=== PATIENT | female | born 1990 | race Caucasian/White ===

== ENCOUNTER 2016-10-03 07:06 | Inpatient (IN) | payer BC, OTHER ==
[2016-10-03] MEDS: Lactated Ringers 1,000 ML IV SCH ×2 (07:40→16:38)
[2016-10-03] MEDS ORDERED: Oxytocin/Normal Saline 10 UNIT/1,000 ML BAG IV SCH (08:00)
--- NOTE | 2016-10-03 08:20 | PCM.SN ---
- Free Text/Narrative Note: Subjective-This is a 26-year-old G4 para 3 who is 39+ weeks with an EDC of . Here for induction. Group B negative. She's been having contractions but nothing significant. Objective- heart tones 140s reactive. Cervix 2+/80/-2 Assessment-induction term multipara group B negative Plan-AROM clear Vaginal delivery
[2016-10-03] MEDS ORDERED: ePHEDrine 50 MG/ML SDV ONE (12:08)
[2016-10-03] MEDS ORDERED: Scopolamine 1.5 MG Transdermal Patch ONE (12:08)
[2016-10-03] MEDS ORDERED: Naloxone 0.4 MG/ML SDV ONE (12:09)
[2016-10-03] MEDS ORDERED: fentaNYL 100 MCG/2 ML SDV ITHECAL ONE ×2 (12:12→14:36)
[2016-10-03] MEDS ORDERED: Bupivacaine 0.75%/D5W 2 ML Amp ISPINAL ONE ×2 (12:12→14:36)
[2016-10-03] MEDS ORDERED: Morphine PF 10 MG/10 ML SDV ONE (12:12)
--- NOTE | 2016-10-03 12:37 | PCM.SN ---
- Free Text/Narrative Note: Cervix
[2016-10-03] MEDS ORDERED: Nalbuphine 10 MG/1 ML Vial IVPUSH PRN (12:39)
[2016-10-03] MEDS ORDERED: Famotidine/Normal Saline 20 MG in Premix Bag 1 BAG IV PRN (12:39)
[2016-10-03] MEDS ORDERED: Naloxone 0.4 MG/ML SDV IVPUSH PRN (12:39)
[2016-10-03] MEDS ORDERED: Naltrexone 50 MG Tab PO PRN (12:39)
[2016-10-03] MEDS ORDERED: Scopolamine 1.5 MG Transdermal Patch TOP ONE (12:39)
[2016-10-03] MEDS ORDERED: diphenhydrAMINE 50 MG/ML SDV IVPUSH PRN (12:39)
[2016-10-03] MEDS ORDERED: Promethazine 12.5 MG in Sodium Chloride 0.9% 50 ML IV PRN (12:39)
[2016-10-03] MEDS ORDERED: ePHEDrine 50 MG/ML SDV IVPUSH PRN (12:39)
[2016-10-03] MEDS ORDERED: Ondansetron 4 MG/2 ML SDV IVPUSH PRN (12:39)
[2016-10-03] MEDS ORDERED: Promethazine 6.25 MG in Sodium Chloride 0.9% 50 ML IV PRN (12:39)
[2016-10-03] MEDS ORDERED: diphenhydrAMINE 50 MG/ML SDV IV PRN (12:39)
[2016-10-03] MEDS ORDERED: Lactated Ringers 500 ML IV SCH ×2 (12:45)
[2016-10-03] MEDS ORDERED: fentaNYL 100 MCG/2 ML SDV ONE (14:35)
--- NOTE | 2016-10-03 15:46 | PCM.DEL ---
L & D Note - General Info Date of Service: 10/03/16 - Delivery Note Labor: augmented by oxytocin Delivery Outcome: Livebirth Delivery Method: Spontaneous Vaginal Delivery Infant Delivery Mode: Spontaneous Presentation: OA Nuchal Cord: None Prep: Other Anesthesia Type: Intrathecal Local Anesthetic Volume: 5cc Amniotic Fluid Description: Clear Episiotomy Type: Midline Suture type: vicryl Suture size: 4-0 Placenta: intact, spontaneous Cord: 3 vessels Resuscitation Needed: No : Bulb Syringe Delivery Comments (Free Text/Narrative):: First-degree laceration repaired in usual fashion. Blood loss less than 500 and complications none - Patient Data Vitals - most recent: Last Vital Signs Temp Pulse 97 10/03/16 13:04 Resp 17 10/03/16 13:04 BP 133/63 10/03/16 13:04 Pulse Ox 99 10/03/16 13:04 Weight - most recent: 250 lb I&O - last 24 hours: Intake & Output 10/03/16 10/03/16 10/03/16 06:59 14:59 22:59 Output Total 350 Balance -350 Med Orders - Current: Current Medications Diphenhydramine HCl (Benadryl) 25 mg IVPUSH ASDIRECTED PRN PRN Reason: EXTRAPYRAMIDAL SIDE EFFECTS Diphenhydramine HCl (Benadryl) 25 mg IV ASDIRECTED PRN PRN Reason: PRURITUS Ephedrine Sulfate (Ephedrine Sulfate) 0 mg IVPUSH ASDIRECTED PRN PRN Reason: Hypotension Lactated Ringer's (Ringers, Lactated) 1,000 mls @ 125 mls/hr IV ASDIRECTED EDDA Last Admin: 10/03/16 07:40 Dose: 125 mls/hr Oxytocin/Sodium Chloride (Pitocin In Ns 10 Units/1,000 Ml) 10 unit in 1,000 mls @ 12 mls/hr IV TITRATE EDDA; 2 MUNITS/MIN PRN Reason: Protocol Last Titration: 10/03/16 12:41 Dose: 6 munits/min, 36 mls/hr Famotidine 20 mg/ Premix 50 mls @ 100 mls/hr IV ONETIME PRN PRN Reason: PRURITIS Lactated Ringer's (Ringers, Lactated) 500 mls @ 999 mls/hr IV .SEECOMMENT EDDA Lactated Ringer's (Ringers, Lactated) 500 mls @ 999 mls/hr IV .BOLUS EDDA Promethazine HCl 6.25 mg/ (Sodium Chloride) 50.25 mls @ 200 mls/hr IV Q4H PRN PRN Reason: Nausea/Vomiting Promethazine HCl 12.5 mg/ (Sodium Chloride) 50.5 mls @ 200 mls/hr IV Q4H PRN PRN Reason: Nausea/Vomiting Nalbuphine HCl (Nubain) 10 mg IVPUSH Q1H PRN PRN Reason: PRURITUS Naltrexone HCl (Naltrexone) 25 mg PO ASDIRECTED PRN PRN Reason: REVERSAL Ondansetron HCl (Zofran) 4 mg IVPUSH Q4H PRN PRN Reason: Nausea/Vomiting Discontinued Medications Ephedrine Sulfate (Ephedrine Sulfate) Confirm Administered Dose 50 mg .ROUTE .STK-MED ONE Stop: 10/03/16 12:09 Fentanyl (Sublimaze) Confirm Administered Dose 100 mcg .ROUTE .STK-MED ONE Stop: 10/03/16 14:36 Naloxone HCl (Narcan) Confirm Administered Dose 0.4 mg .ROUTE .STK-MED ONE Stop: 10/03/16 12:10 Naloxone HCl (Narcan) 0.1 mg IVPUSH .SEECOMMENT PRN PRN Reason: Respiratory Depression Stop: 10/03/16 12:40 Scopolamine (Transderm-Scop) Confirm Administered Dose 1.5 mg .ROUTE .STK-MED ONE Stop: 10/03/16 12:09 Scopolamine (Transderm-Scop) 1.5 mg TOP ONETIME ONE Stop: 10/03/16 12:40 - Problem List & Annotations (1) Vaginal delivery SNOMED Code(s): 881954791 Code(s): O80 - ENCOUNTER FOR FULL-TERM UNCOMPLICATED DELIVERY Status: Acute Current Visit: Yes - Problem List Review Problem List Initiated/Reviewed/Updated: Yes - My Orders Last 24 Hours: My Active Orders 10/03/16 07:16 Admission Status [Patient Status] [ADT] Routine 10/03/16 07:51 Communication Order [RC] ASDIRECTED Communication Order [RC] ASDIRECTED Communication Order [RC] ASDIRECTED Communication Order [RC] ASDIRECTED Notify Provider [RC] PRN Notify Provider [RC] STAT Vital Signs [RC] PER UNIT ROUTINE 10/03/16 08:00 Lactated Ringers [Ringers, Lactated] 1,000 ml IV ASDIRECTED Oxytocin/Normal Saline [Pitocin in NS 10 UNITS/1,000 ML] 10 unit in 1,000 ml IV TITRATE 10/03/16 08:19 Admission Status [Patient Status] [ADT] Routine - Plan Plan:: Routine orders without hemoglobin tomorrow. Ibuprofen every 8 hours and Tylenol No. 3 when necessary.
[2016-10-03] MEDS ORDERED: Acetaminophen/Codeine 300-30 MG Tab PO PRN (15:47)
[2016-10-03] MEDS: Ibuprofen 800 MG Tab PO SCH (16:33)
[2016-10-03] MEDS ORDERED: Oxytocin 10 Units/1 ML SDV IM ONE (18:36)
[2016-10-03] MEDS ORDERED: Lidocaine 1% 20 ML MDV INJECT ONE (18:37)
[2016-10-04] MEDS: Ibuprofen 800 MG Tab PO SCH ×3 (00:45→16:31)
[2016-10-04] MEDS: Prenatal Multivitamin with Calcium/Folic Acid/Fe Fumarate Cap PO SCH (08:05)
--- NOTE | 2016-10-04 08:20 | PCM.PN ---
- General Info Date of Service: 10/04/16 Admission Dx/Problem (Free Text): Patient is without complaints. She states her pain is controlled. Other left leg she has a little bit of a painful varicose vein. No fevers. - Patient Data Vitals - most recent: Last Vital Signs Temp 97.8 F 10/04/16 06:25 Pulse 68 10/04/16 06:25 Resp 20 10/04/16 06:25 BP 106/57 L 10/04/16 06:25 Pulse Ox 97 10/04/16 06:25 Weight - most recent: 250 lb I&O - last 24 hours: Intake & Output 10/03/16 10/04/16 10/04/16 22:59 06:59 14:59 Intake Total 500 1400 250 Output Total 250 Balance 250 1400 250 Lab Results last 24 hrs: Laboratory Results - last 24 hr 10/04/16 Range/Units 06:15 Hgb 11.4 L (11.5-15.5) g/dL Hct 34.3 (30.0-51.3) % Med Orders - Current: Current Medications Acetaminophen/Codeine Phosphate (Tylenol With Codeine No.3 300mg/30mg) 1 tab PO Q4H PRN PRN Reason: Pain (moderate 4-6) Diphenhydramine HCl (Benadryl) 25 mg IVPUSH ASDIRECTED PRN PRN Reason: EXTRAPYRAMIDAL SIDE EFFECTS Diphenhydramine HCl (Benadryl) 25 mg IV ASDIRECTED PRN PRN Reason: PRURITUS Ephedrine Sulfate (Ephedrine Sulfate) 0 mg IVPUSH ASDIRECTED PRN PRN Reason: Hypotension Lactated Ringer's (Ringers, Lactated) 1,000 mls @ 125 mls/hr IV ASDIRECTED EDDA Last Admin: 10/03/16 16:38 Dose: 125 mls/hr Oxytocin/Sodium Chloride (Pitocin In Ns 10 Units/1,000 Ml) 10 unit in 1,000 mls @ 12 mls/hr IV TITRATE EDDA; 2 MUNITS/MIN PRN Reason: Protocol Last Titration: 10/03/16 12:41 Dose: 6 munits/min, 36 mls/hr Famotidine 20 mg/ Premix 50 mls @ 100 mls/hr IV ONETIME PRN PRN Reason: PRURITIS Lactated Ringer's (Ringers, Lactated) 500 mls @ 999 mls/hr IV .SEECOMMENT EDDA Lactated Ringer's (Ringers, Lactated) 500 mls @ 999 mls/hr IV .BOLUS [facility] Last Admin: 10/03/16 14:30 Dose: 999 mls/hr Promethazine HCl 6.25 mg/ (Sodium Chloride) 50.25 mls @ 200 mls/hr IV Q4H PRN PRN Reason: Nausea/Vomiting Promethazine HCl 12.5 mg/ (Sodium Chloride) 50.5 mls @ 200 mls/hr IV Q4H PRN PRN Reason: Nausea/Vomiting Ibuprofen (Motrin) 800 mg PO Q8H EDDA Last Admin: 10/04/16 08:04 Dose: 800 mg Nalbuphine HCl (Nubain) 10 mg IVPUSH Q1H PRN PRN Reason: PRURITUS Naltrexone HCl (Naltrexone) 25 mg PO ASDIRECTED PRN PRN Reason: REVERSAL Last Admin: 10/03/16 16:34 Dose: 25 mg Ondansetron HCl (Zofran) 4 mg IVPUSH Q4H PRN PRN Reason: Nausea/Vomiting Multivit/Folic Acid/Iron (-U) 1 each PO DAILY [facility] Last Admin: 10/04/16 08:05 Dose: 1 each Discontinued Medications Ephedrine Sulfate (Ephedrine Sulfate) Confirm Administered Dose 50 mg .ROUTE .STK-MED ONE Stop: 10/03/16 12:09 Last Admin: 10/03/16 16:21 Dose: Not Given Fentanyl (Sublimaze) Confirm Administered Dose 100 mcg .ROUTE .STK-MED ONE Stop: 10/03/16 14:36 Lidocaine HCl (Xylocaine 1%) 20 ml INJECT ONETIME ONE Stop: 10/03/16 18:38 Last Admin: 10/03/16 15:45 Dose: 20 ml Naloxone HCl (Narcan) Confirm Administered Dose 0.4 mg .ROUTE .STK-MED ONE Stop: 10/03/16 12:10 Last Admin: 10/03/16 16:22 Dose: Not Given Naloxone HCl (Narcan) 0.1 mg IVPUSH .SEECOMMENT PRN PRN Reason: Respiratory Depression Stop: 10/03/16 12:40 Oxytocin (Pitocin) 10 unit IM ONETIME ONE Stop: 10/03/16 18:37 Last Admin: 10/03/16 15:31 Dose: 10 unit Scopolamine (Transderm-Scop) Confirm Administered Dose 1.5 mg .ROUTE .STK-MED ONE Stop: 10/03/16 12:09 Last Admin: 10/03/16 16:21 Dose: Not Given Scopolamine (Transderm-Scop) 1.5 mg TOP ONETIME ONE Stop: 10/03/16 12:40 Last Admin: 10/03/16 12:30 Dose: 1.5 mg - Exam General: alert, oriented Lungs: Normal respiratory effort Abdomen: other (Fundus firm) Extremities: no edema, other (Left leg has a varicose vein that has no erythema but little painful to touch.) - Problem List & Annotations (1) Vaginal delivery SNOMED Code(s): 066679034 Code(s): O80 - ENCOUNTER FOR FULL-TERM UNCOMPLICATED DELIVERY Status: Acute Current Visit: Yes (2) Varicose vein of leg SNOMED Code(s): 44169651 Code(s): I83.90 - ASYMPTOMATIC VARICOSE VEINS OF UNSPECIFIED LOWER EXTREMITY Status: Acute Current Visit: Yes - Problem List Review Problem List Initiated/Reviewed/Updated: Yes - My Orders Last 24 Hours: My Active Orders 10/03/16 08:00 Lactated Ringers [Ringers, Lactated] 1,000 ml IV ASDIRECTED Oxytocin/Normal Saline [Pitocin in NS 10 UNITS/1,000 ML] 10 unit in 1,000 ml IV TITRATE 10/03/16 15:47 Patient Status [ADT] Routine May Shower [RC] ASDIRECTED Up ad Mare [RC] ASDIRECTED Vital Signs [RC] PFP Acetaminophen/Codeine [Tylenol with Codeine No.3 300MG/30MG] 1 tab PO Q4H PRN Assess Lochia [WOMSER] Per Unit Routine Assess Uterine Involution [WOMSER] Per Unit Routine Ice Therapy [OM.PC] Per Unit Routine Perineal Care [OM.PC] Per Unit Routine Sitz Bath [OM.PC] Per Unit Routine Resuscitation Status Routine 10/03/16 15:49 Peripheral IV Discontinue [OM.PC] Routine 10/03/16 16:00 Ibuprofen [Motrin] 800 mg PO Q8H 10/03/16 Dinner Regular Diet [DIET] 10/04/16 09:00 Vit/FA/Fe Fumarate [-U] 1 each PO DAILY - Plan Plan:: Heat to the vein when necessary. Continue current care.
[2016-10-05] MEDS: Ibuprofen 800 MG Tab PO SCH ×2 (00:57→08:09)
[2016-10-05] MEDS: Prenatal Multivitamin with Calcium/Folic Acid/Fe Fumarate Cap PO SCH (08:09)
--- NOTE | 2016-10-05 08:19 | PCM.PN ---
- General Info Date of Service: 10/05/16 Admission Dx/Problem (Free Text): Patient without complaints. Minimal pain is controlled by ibuprofen. Vaginal bleeding decreasing. - Patient Data Vitals - most recent: Last Vital Signs Temp 98.1 F 10/05/16 01:00 Pulse 67 10/05/16 01:00 Resp 18 10/05/16 01:00 BP 104/58 L 10/05/16 01:00 Pulse Ox 96 10/05/16 01:00 Weight - most recent: 250 lb Med Orders - Current: Current Medications Acetaminophen/Codeine Phosphate (Tylenol With Codeine No.3 300mg/30mg) 1 tab PO Q4H PRN PRN Reason: Pain (moderate 4-6) Diphenhydramine HCl (Benadryl) 25 mg IVPUSH ASDIRECTED PRN PRN Reason: EXTRAPYRAMIDAL SIDE EFFECTS Diphenhydramine HCl (Benadryl) 25 mg IV ASDIRECTED PRN PRN Reason: PRURITUS Ephedrine Sulfate (Ephedrine Sulfate) 0 mg IVPUSH ASDIRECTED PRN PRN Reason: Hypotension Lactated Ringer's (Ringers, Lactated) 1,000 mls @ 125 mls/hr IV ASDIRECTED EDDA Last Admin: 10/03/16 16:38 Dose: 125 mls/hr Oxytocin/Sodium Chloride (Pitocin In Ns 10 Units/1,000 Ml) 10 unit in 1,000 mls @ 12 mls/hr IV TITRATE EDDA; 2 MUNITS/MIN PRN Reason: Protocol Last Titration: 10/03/16 12:41 Dose: 6 munits/min, 36 mls/hr Famotidine 20 mg/ Premix 50 mls @ 100 mls/hr IV ONETIME PRN PRN Reason: PRURITIS Lactated Ringer's (Ringers, Lactated) 500 mls @ 999 mls/hr IV .SEECOMMENT EDDA Lactated Ringer's (Ringers, Lactated) 500 mls @ 999 mls/hr IV .BOLUS EDDA Last Admin: 10/03/16 14:30 Dose: 999 mls/hr Promethazine HCl 6.25 mg/ (Sodium Chloride) 50.25 mls @ 200 mls/hr IV Q4H PRN PRN Reason: Nausea/Vomiting Promethazine HCl 12.5 mg/ (Sodium Chloride) 50.5 mls @ 200 mls/hr IV Q4H PRN PRN Reason: Nausea/Vomiting Ibuprofen (Motrin) 800 mg PO Q8H [facility] Last Admin: 10/05/16 08:09 Dose: 800 mg Nalbuphine HCl (Nubain) 10 mg IVPUSH Q1H PRN PRN Reason: PRURITUS Naltrexone HCl (Naltrexone) 25 mg PO ASDIRECTED PRN PRN Reason: REVERSAL Last Admin: 10/03/16 16:34 Dose: 25 mg Ondansetron HCl (Zofran) 4 mg IVPUSH Q4H PRN PRN Reason: Nausea/Vomiting Multivit/Folic Acid/Iron (-U) 1 each PO DAILY [facility] Last Admin: 10/05/16 08:09 Dose: 1 each Discontinued Medications Bupivacaine HCl/Dextrose (Marcaine 0.75% Spinal) 0.4 ml ISPINAL .STK-MED ONE Stop: 10/03/16 12:13 Bupivacaine HCl/Dextrose (Marcaine 0.75% Spinal) 0.5 ml ISPINAL .STK-MED ONE Stop: 10/03/16 14:37 Ephedrine Sulfate (Ephedrine Sulfate) Confirm Administered Dose 50 mg .ROUTE .STK-MED ONE Stop: 10/03/16 12:09 Last Admin: 10/03/16 16:21 Dose: Not Given Fentanyl (Sublimaze) Confirm Administered Dose 100 mcg .ROUTE .STK-MED ONE Stop: 10/03/16 14:36 Fentanyl (Sublimaze) 15 mcg ITHECAL .STK-MED ONE Stop: 10/03/16 12:13 Fentanyl (Sublimaze) 25 mcg ITHECAL .STK-MED ONE Stop: 10/03/16 14:37 Lidocaine HCl (Xylocaine 1%) 20 ml INJECT ONETIME ONE Stop: 10/03/16 18:38 Last Admin: 10/03/16 15:45 Dose: 20 ml Morphine Sulfate (Duramorph Pf) 0.2 mg .XX .STK-MED ONE Stop: 10/03/16 12:13 Naloxone HCl (Narcan) Confirm Administered Dose 0.4 mg .ROUTE .STK-MED ONE Stop: 10/03/16 12:10 Last Admin: 10/03/16 16:22 Dose: Not Given Naloxone HCl (Narcan) 0.1 mg IVPUSH .SEECOMMENT PRN PRN Reason: Respiratory Depression Stop: 10/03/16 12:40 Oxytocin (Pitocin) 10 unit IM ONETIME ONE Stop: 10/03/16 18:37 Last Admin: 10/03/16 15:31 Dose: 10 unit Scopolamine (Transderm-Scop) Confirm Administered Dose 1.5 mg .ROUTE .STK-MED ONE Stop: 10/03/16 12:09 Last Admin: 10/03/16 16:21 Dose: Not Given Scopolamine (Transderm-Scop) 1.5 mg TOP ONETIME ONE Stop: 10/03/16 12:40 Last Admin: 10/03/16 12:30 Dose: 1.5 mg - Exam General: alert, oriented Lungs: Normal respiratory effort Abdomen: other (Fundus firm) - Problem List & Annotations (1) Vaginal delivery SNOMED Code(s): 040971387 Code(s): O80 - ENCOUNTER FOR FULL-TERM UNCOMPLICATED DELIVERY Status: Acute Current Visit: Yes (2) Varicose vein of leg SNOMED Code(s): 89659363 Code(s): I83.90 - ASYMPTOMATIC VARICOSE VEINS OF UNSPECIFIED LOWER EXTREMITY Status: Acute Current Visit: Yes - Problem List Review Problem List Initiated/Reviewed/Updated: Yes - My Orders Last 24 Hours: My Active Orders 10/04/16 09:00 Vit/FA/Fe Fumarate [-U] 1 each PO DAILY - Plan Plan:: Discharge to home
--- NOTE | 2016-10-05 08:22 | PCM.DCSUM1 ---
Discharge Summary - Hospital Course Free Text/Narrative:: Hospital course-patient did well. Hemoglobin is 11.4 day 1. She will varicose vein is causing some little discomfort. Was exam is unaffected. Used heat when necessary. Did well. She required no Tylenol 3 will use ibuprofen around the clock. She concerns and she is breast-feeding. Discharge to home. Brief History: 26-year-old term comes in for a induction. She is group B negative. Delivered a healthy female patient occiput posterior. - Discharge Data Discharge Date: 10/05/16 Discharge Disposition: Home, Self-Care 01 Condition: Good - Discharge Diagnosis/Problem(s) (1) Vaginal delivery SNOMED Code(s): 970899728 ICD Code: O80 - ENCOUNTER FOR FULL-TERM UNCOMPLICATED DELIVERY Status: Acute Current Visit: Yes (2) Varicose vein of leg SNOMED Code(s): 21592461 ICD Code: I83.90 - ASYMPTOMATIC VARICOSE VEINS OF UNSPECIFIED LOWER EXTREMITY Status: Acute Current Visit: Yes - Patient Instructions Diet: Regular Diet as Tolerated Activity: As Tolerated Driving: May Drive Today Showering/Bathing: May Shower Notify Provider of: Fever, Increased Pain, Swelling and Redness, Drainage Other/Special Instructions: 1. Recheck in [address] check with Dr. Currie. 2. [id number] ibuprofen when necessary for pain. - Discharge Plan Home Medications: Home Meds Vit 90/Iron Fum/Folic [ Formula] 1 each PO DAILY 08/03/13 [ History] Patient Handouts: Shaken Baby Syndrome, Ibuprofen Dosage Chart, Pediatric, Rehydration, Pediatric, and Mastitis, Depression and Baby Blues, Baby Safe Sleeping Information, Acetaminophen Dosage Chart, Pediatric, Constipation, Infant, Baby Care, Home Care Instructions for Mom, SIDS Prevention Information, Baby Safe Sleeping Information, [id number], Rear-Facing Infant-Only Child Safety Seat, CPR, Child - Discharge Summary/Plan Comment DC Time >30 min.: No - Patient Data Vitals - Most Recent: Last Vital Signs Temp 98.1 F 10/05/16 01:00 Pulse 67 10/05/16 01:00 Resp 18 10/05/16 01:00 BP 104/58 L 10/05/16 01:00 Pulse Ox 96 10/05/16 01:00 Weight - Most Recent: 250 lb Med Orders - Current: Current Medications Acetaminophen/Codeine Phosphate (Tylenol With Codeine No.3 300mg/30mg) 1 tab PO Q4H PRN PRN Reason: Pain (moderate 4-6) Diphenhydramine HCl (Benadryl) 25 mg IVPUSH ASDIRECTED PRN PRN Reason: EXTRAPYRAMIDAL SIDE EFFECTS Diphenhydramine HCl (Benadryl) 25 mg IV ASDIRECTED PRN PRN Reason: PRURITUS Ephedrine Sulfate (Ephedrine Sulfate) 0 mg IVPUSH ASDIRECTED PRN PRN Reason: Hypotension Lactated Ringer's (Ringers, Lactated) 1,000 mls @ 125 mls/hr IV ASDIRECTED EDDA Last Admin: 10/03/16 16:38 Dose: 125 mls/hr Oxytocin/Sodium Chloride (Pitocin In Ns 10 Units/1,000 Ml) 10 unit in 1,000 mls @ 12 mls/hr IV TITRATE EDDA; 2 MUNITS/MIN PRN Reason: Protocol Last Titration: 10/03/16 12:41 Dose: 6 munits/min, 36 mls/hr Famotidine 20 mg/ Premix 50 mls @ 100 mls/hr IV ONETIME PRN PRN Reason: PRURITIS Lactated Ringer's (Ringers, Lactated) 500 mls @ 999 mls/hr IV .SEECOMMENT EDDA Lactated Ringer's (Ringers, Lactated) 500 mls @ 999 mls/hr IV .BOLUS EDDA Last Admin: 10/03/16 14:30 Dose: 999 mls/hr Promethazine HCl 6.25 mg/ (Sodium Chloride) 50.25 mls @ 200 mls/hr IV Q4H PRN PRN Reason: Nausea/Vomiting Promethazine HCl 12.5 mg/ (Sodium Chloride) 50.5 mls @ 200 mls/hr IV Q4H PRN PRN Reason: Nausea/Vomiting Ibuprofen (Motrin) 800 mg PO Q8H EDDA Last Admin: 10/05/16 08:09 Dose: 800 mg Nalbuphine HCl (Nubain) 10 mg IVPUSH Q1H PRN PRN Reason: PRURITUS Naltrexone HCl (Naltrexone) 25 mg PO ASDIRECTED PRN PRN Reason: REVERSAL Last Admin: 10/03/16 16:34 Dose: 25 mg Ondansetron HCl (Zofran) 4 mg IVPUSH Q4H PRN PRN Reason: Nausea/Vomiting Multivit/Folic Acid/Iron (-U) 1 each PO DAILY EDDA Last Admin: 10/05/16 08:09 Dose: 1 each Discontinued Medications Bupivacaine HCl/Dextrose (Marcaine 0.75% Spinal) 0.4 ml ISPINAL .STK-MED ONE Stop: 10/03/16 12:13 Bupivacaine HCl/Dextrose (Marcaine 0.75% Spinal) 0.5 ml ISPINAL .STK-MED ONE Stop: 10/03/16 14:37 Ephedrine Sulfate (Ephedrine Sulfate) Confirm Administered Dose 50 mg .ROUTE .STK-MED ONE Stop: 10/03/16 12:09 Last Admin: 10/03/16 16:21 Dose: Not Given Fentanyl (Sublimaze) Confirm Administered Dose 100 mcg .ROUTE .STK-MED ONE Stop: 10/03/16 14:36 Fentanyl (Sublimaze) 15 mcg ITHECAL .STK-MED ONE Stop: 10/03/16 12:13 Fentanyl (Sublimaze) 25 mcg ITHECAL .STK-MED ONE Stop: 10/03/16 14:37 Lidocaine HCl (Xylocaine 1%) 20 ml INJECT ONETIME ONE Stop: 10/03/16 18:38 Last Admin: 10/03/16 15:45 Dose: 20 ml Morphine Sulfate (Duramorph Pf) 0.2 mg .XX .STK-MED ONE Stop: 10/03/16 12:13 Naloxone HCl (Narcan) Confirm Administered Dose 0.4 mg .ROUTE .STK-MED ONE Stop: 10/03/16 12:10 Last Admin: 10/03/16 16:22 Dose: Not Given Naloxone HCl (Narcan) 0.1 mg IVPUSH .SEECOMMENT PRN PRN Reason: Respiratory Depression Stop: 10/03/16 12:40 Oxytocin (Pitocin) 10 unit IM ONETIME ONE Stop: 10/03/16 18:37 Last Admin: 10/03/16 15:31 Dose: 10 unit Scopolamine (Transderm-Scop) Confirm Administered Dose 1.5 mg .ROUTE .STK-MED ONE Stop: 10/03/16 12:09 Last Admin: 10/03/16 16:21 Dose: Not Given Scopolamine (Transderm-Scop) 1.5 mg TOP ONETIME ONE Stop: 10/03/16 12:40 Last Admin: 10/03/16 12:30 Dose: 1.5 mg *Q Meaningful Use (DIS) - VTE *Q VTE Criteria *Q: - Stroke *Q Stroke Criteria *Q: - AMI *Q AMI Criteria *Q:
[2016-10-05 08:31] VITALS: BP 112/65
== END 2016-10-05 11:05 | disposition home or self-care (01) | DRG 775 ==
LOC: FB.OBCHECK 07:06 → FB.OB 07:10 → OBSVTOIN 08:04
PROVIDERS: ADMIT Family Medicine; ATTEND Family Medicine
PROC: 10E0XZZ Delivery of Products of Conception, External Approach (ICD-10-PCS; principal; 2016-10-03)
PROC: 3E033VJ Introduction of Other Hormone into Peripheral Vein, Percutaneous Approach (ICD-10-PCS; 2016-10-03)
PROC: 10907ZC Drainage of Amniotic Fluid, Therapeutic from Products of Conception, Via Natural or Artificial Opening (ICD-10-PCS; 2016-10-03)
PROC: 0HQ9XZZ Repair Perineum Skin, External Approach (ICD-10-PCS; 2016-10-03)
DX: O70.0 First degree perineal laceration during delivery (principal); Z3A.39 39 weeks gestation of pregnancy; Z37.0 Single live birth; I83.90 Asymptomatic varicose veins of unspecified lower extremity
CPT/HCPCS: 36415; 85014; 85018; A9270-GY; J2270; J2590; J3010; J7120